=== PATIENT | female | born 1990 | race Caucasian/White ===

== ENCOUNTER 2017-06-17 03:13 | Emergency (ER) | payer OTHER ==
[2017-06-17 03:42] VITALS: BMI 26.5
[2017-06-17 03:44] VITALS: BP 139/74; PULSE 113; RESP 16; TEMP 98.6; O2SAT 100
[2017-06-17] MEDS ORDERED: Sodium Chloride 0.9% 1,000 ML IV STA ×2 (03:51→06:54)
[2017-06-17 04:22] LABS: BASO % 0.1 % (0.0-2.0); EOS # 0.1 K/uL (0.0-0.7); EOS % 0.6 % (0.0-4.0); HEMATOCRIT 43.9 % (34.0-47.0); LYMPH # 0.8 K/uL (1.0-4.3); LYMPH % 4.5 % (20.0-40.0); MEAN CELL VOLUME 84.3 fl (81.0-99.0); MEAN CORPUSCULAR HEMOGLOBIN 29.5 pg (27.0-31.0); MEAN PLATELET VOLUME 8.8 fl (7.2-11.7); MONO # 0.8 K/uL (0.0-0.8); MONO % 4.1 % (0.0-10.0); NEUT # 16.9 K/uL (1.8-7.0); NEUT % 90.7 % (50.0-75.0); PLATELET COUNT 288 K/uL (130-400); RED CELL DISTRIBUTION WIDTH 13.3 % (11.5-14.5); WHITE BLOOD COUNT 18.6 K/uL (4.8-10.8)
--- NOTE | 2017-06-17 04:31 | ED PDOC ---
HPI: Abdomen Time Seen by Provider: 06/17/17 03:49 Chief Complaint (Nursing): Abdominal Pain Chief Complaint (Provider): Nausea, vomiting, diarrhea, abdominal pain History Per: Patient History/Exam Limitations: no limitations Onset/Duration Of Symptoms: Hrs (2) Outside of [place] travel?: No Current Symptoms Are (Timing): Still Present Associated Symptoms: Chills, Nausea, Vomiting, Diarrhea. denies: Fever Additional Complaint(s): 26yo female with no past medical history, presents to ED with complaints of nausea, vomiting, diarrhea and abdominal pain for the past 2 hours. Patient states she woke up with acute vomiting and diarrhea, > 10 episodes, non-bloody and non-bilious. She reports associated abdominal cramping. Patient also reports chills but denies any fever. She denies taking any medications for her symptoms. No other complaints. Past Medical History Reviewed: Historical Data, Nursing Documentation, Vital Signs Vital Signs: Last Vital Signs Temp 98.6 F 06/17/17 03:42 Pulse 113 H 06/17/17 03:42 Resp 16 06/17/17 03:42 BP 139/74 06/17/17 03:42 Pulse Ox 100 06/17/17 07:49 - Medical History PMH: No Chronic Diseases - Surgical History Surgical History: Cholecystectomy - Family History Family History: States: No Known Family Hx - Home Medications Home Medications: Ambulatory Orders Medication Instructions Recorded Ondansetron [Zofran] 4 mg PO Q6H PRN #10 tab 06/17/17 - Allergies Allergies/Adverse Reactions: Allergies Allergy/AdvReac Type Severity Reaction Status Date / Time coconut Allergy RASH Verified 06/17/17 03:41 pineapple Allergy RASH Verified 06/17/17 03:41 Review of Systems ROS Statement: Except As Marked, All Systems Reviewed And Found Negative Constitutional: Positive for: Chills. Negative for: Fever Gastrointestinal: Positive for: Nausea, Vomiting, Abdominal Pain, Diarrhea Physical Exam - Reviewed Nursing Documentation Reviewed: Yes Vital Signs Reviewed: Yes - Physical Exam Appears: Positive for: Uncomfortable Head Exam: Positive for: ATRAUMATIC, NORMAL INSPECTION, NORMOCEPHALIC Skin: Positive for: Normal Color Eye Exam: Positive for: Normal appearance ENT: Positive for: Other (tacky mucous membranes) Neck: Positive for: Supple Cardiovascular/Chest: Positive for: Regular Rate, Rhythm Respiratory: Positive for: Normal Breath Sounds. Negative for: Respiratory Distress Gastrointestinal/Abdominal: Positive for: Normal Exam, Soft. Negative for: Tenderness Neurologic/Psych: Positive for: Alert, Oriented - Laboratory Results Result Diagrams: 06/17/17 04:00 06/17/17 04:00 - ECG O2 Sat by Pulse Oximetry: 100 (RA) Pulse Ox Interpretation: Normal Medical Decision Making Medical Decision Making: Impression: 26yo female presents with abdominal pain, vomiting and diarrhea Plan: -- CT Abdomen w/ IV Contrast -- IV FLuids -- Bentyl 20 mg PO -- Zofran 4 mg IV -- Labs Reassess Time: 0700 Patient to be signed out to Dr. Olivas pending CT Abdomen results and re- evaluation. Scribe Attestation: Documented by Clarissa Renee acting as a scribe for Amado Henry MD. Provider Attestation: All medical record entries made by the Scribe were at my direction and personally dictated by me. I have reviewed the chart and agree that the record accurately reflects my personal performance of the history, physical exam, medical decision making, and the department course for this patient. I have also personally directed, reviewed, and agree with the discharge instructions and disposition. Disposition - Clinical Impression Clinical Impression: Gastroenteritis - Patient ED Disposition Is Patient to be Admitted: Transfer of Care - Disposition Referrals: Laci BRYANT,MD Harjeet [Medical Doctor] - Disposition: Transfer of Care Disposition Time: 07:00 Condition: STABLE Additional Instructions: Recommend liquid diet today. Return to ER for any new or worse symptoms. Prescriptions: Ondansetron [Zofran] 4 mg PO Q6H PRN #10 tab PRN Reason: Nausea/Vomiting Instructions: Gastroenteritis (ED) Forms: [employer] ([place]), [facility] ED School/Work Excuse Patient Signed Over To: Kai Olivas III Handoff Comments: Pending imaging studies
[2017-06-17 04:32] LABS: ALKALINE PHOSPHATASE 110 U/L (38-126); ALT/SGPT 39 U/L (9-52); AST/SGOT 27 U/L (14-36); BLOOD UREA NITROGEN 15 mg/dl (7-17); CALCIUM 9.9 mg/dL (8.4-10.2); CARBON DIOXIDE 22 mmol/L (22-30); CHLORIDE 105 mmol/L (98-107); GFR AFRICAN-AMERICAN > 60; GLUCOSE,RANDOM 141 mg/dL (65-105); LIPASE 91 U/L (23-300); POTASSIUM 3.9 MMOL/L (3.6-5.0); SODIUM 144 mmol/l (132-148); TOTAL PROTEIN 8.7 G/DL (6.3-8.2)
[2017-06-17 04:36] LABS: ALB/GLOB RATIO 1.4 (1.0-2.1)
[2017-06-17 04:50] LABS: EOSINOPHIL 1 % (0-7); METAMYELOCYTE 1 % (0-0); NEUTROPHIL 88 % (42-75); TOTAL CELLS COUNTED 100
[2017-06-17 05:21] LABS: RBC URINE 4 /hpf (0-3); URINE BACTERIA MOD (<OCC); URINE BILIRUBIN NEGATIVE (NEGATIVE); URINE BLOOD SMALL (NEGATIVE); URINE COLOR AMBER (YELLOW); URINE GLUCOSE (UA) NEG (Normal); URINE KETONE 20 mg/dL (NEGATIVE); URINE LEUKOCYTE ESTERASE TRACE Leu/uL (Negative); URINE PROTEIN 30 mg/dL (NEGATIVE); URINE UROBILINOGEN 0.2-1.0 mg/dL (0.2-1.0); WBC URINE 3 /hpf (0-5)
[2017-06-17] MEDS ORDERED: Iohexol 300 100 ML IJ ONE (06:22)
--- NOTE | 2017-06-17 07:05 | ED PDOC ---
"- Laboratory Results Result Diagrams: 06/17/17 04:00 06/17/17 04:00 - ECG O2 Sat by Pulse Oximetry: 100 (RA) Medical Decision Making Medical Decision Makinam pending CT report and re-eval COMPARISON: No relevant prior studies available. FINDINGS: Lower thorax: Small hiatal hernia. ABDOMEN: Liver: Fatty liver. Gallbladder and bile ducts: Cholecystectomy. Mild central biliary prominence could be post cholecystectomy Pancreas: Unremarkable. No mass. No ductal dilation. Spleen: Unremarkable. No splenomegaly. Adrenals: Unremarkable. No mass. Kidneys and ureters: Unremarkable. No solid mass. No hydronephrosis. Stomach and bowel: There are nonspecific fluid filled stomach, small bowel loops and colon. These findings can represent ileus versus infectious or inflammatory gastroenteritis/ enterocolitis versus slow transit versus peristalsis. No obstruction. Appendix: Suboptimally seen normal caliber appendix. ORLY ROSENBAUMNY | Preliminary Radiology Report SUBMARINE CABLE EQUIPMENT TECHNICIAN (QA) DISCREPANCY? If there is a discrepancy between the preliminary and final interpretation, please notify [facility] via [email or web address]. If you do not have access to our QA portal, call our QA team at [phone] CONFIDENTIALITY STATEMENT This report is intended only for the use of the referring physician, and only in accordance with law, If you received this in error, call [phone] Page 2 of 2 PELVIS: Bladder: Partially decompressed bladder with bladder wall thickening. Correlation with urinalysis is recommended only if clinical cystitis is suspected. Reproductive: Uterus is seen. ABDOMEN and PELVIS: Intraperitoneal space: Unremarkable. No free air. No significant fluid collection. Bones/joints: No acute fracture. No dislocation. Soft tissues: Unremarkable. Vasculature: Unremarkable. No abdominal aortic aneurysm. Lymph nodes: Unremarkable. No enlarged lymph nodes. IMPRESSION: 1. There are nonspecific fluid filled stomach, small bowel loops and colon. These findings can represent ileus versus infectious or inflammatory gastroenteritis/enterocolitis versus slow transit versus peristalsis. DC w zofran, followup GI/ PMD. Rx zofran, oral fluids as tolerated, return for any worse or new symptoms On re-eval abdomen no focal abd tenderness. Disposition Counseled Patient/Family Regarding: Studies Performed, Diagnosis, Need For Followup, Rx Given - Clinical Impression Clinical Impression: Gastroenteritis - POA Present On Arrival: None - Disposition Disposition: Routine/Home Disposition Time: 07:47 Condition: STABLE Additional Instructions: Recommend liquid diet today. Return to ER for any new or worse symptoms. Prescriptions: Ondansetron [Zofran] 4 mg PO Q6H PRN #10 tab PRN Reason: Nausea/Vomiting Instructions: Gastroenteritis (ED) Forms: [employer] (Divehi)"
[2017-06-17] MEDS ORDERED: Atropine-Diphenoxylate 0.025-2.5 mg Tab PO ONE (08:15)
--- NOTE | 2017-06-17 12:12 | CT ---
PROCEDURE: CT Abdomen and Pelvis with contrast HISTORY: diarrhea/elevated WBC COMPARISON: None. TECHNIQUE: Contrast dose: Omnipaque 300, 95 cc Radiation dose: Total exam DLP = 534.67 mGy-cm. This CT exam was performed using one or more of the following dose reduction techniques: Automated exposure control, adjustment of the mA and/or kV according to patient size, and/or use of iterative reconstruction technique. FINDINGS: LOWER THORAX: Unremarkable. LIVER: Diminished density throughout the liver suggests mild diffuse fatty infiltration throughout. No discrete mass is appreciated or definite intrahepatic biliary dilatation. GALLBLADDER AND BILE DUCTS: Cholecystectomy, reportedly 2 years previously (as per patient). 11 mm dilatation of the common duct is appreciated without radiodense choledocholithiasis, likely a function of prior cholecystectomy. Clinically correlate. PANCREAS: Unremarkable. No gross lesion or ductal dilatation. SPLEEN: Unremarkable. ADRENALS: Unremarkable. No mass. KIDNEYS AND URETERS: Unremarkable. No hydronephrosis. No solid mass. VASCULATURE: Unremarkable. No aortic aneurysm. BOWEL: Liquified fecal material seen throughout the small large-bowel his follow-up pattern suggest probable diarrhea. Clinically correlate further. No suspicious mural thickening or diverticular disease throughout. APPENDIX: Appendix not identified which may indicate prior appendectomy. Clinically correlate. No definite CT pattern of appendicitis at this time. PERITONEUM: Unremarkable. No free fluid. No free air. LYMPH NODES: Unremarkable. No enlarged lymph nodes. BLADDER: Unremarkable. REPRODUCTIVE: Unremarkable. BONES: No acute fracture. OTHER FINDINGS: None. IMPRESSION: Liquid fecal material of the large bowel may indicate diarrhea. A more broad presence of fluid in the small-bowel and even somewhat of the stomach may indicate slow transit through of the gastrointestinal tract, ileus or even enterocolitis. Neither of the latter 2 are favored but clinical correlation is advised. Hepatic steatosis. Prior cholecystectomy. Dilated CBD may be a function of prior cholecystectomy. Clinically correlate. No radiodense choledocholithiasis. Concordant preliminary report from [facility], 06/17/2017.
== END 2017-06-17 10:48 | disposition home or self-care (01) ==
LOC: H.ER 03:13
DX: K52.9 Noninfective gastroenteritis and colitis, unspecified (principal); K83.8 Other specified diseases of biliary tract; K76.0 Fatty (change of) liver, not elsewhere classified; Z90.49 Acquired absence of other specified parts of digestive tract
CPT/HCPCS: 74177; 80053; 81003; 81025; 83690; 85025; 96361; 96365; 96375; 96376; 99283; J1885; J2405; J2765; J7040; Q9967